=== PATIENT | male | born 2000 | race Caucasian/White ===

== ENCOUNTER 2019-12-02 23:47 | Emergency (ER) | payer OTHER ==
[~2019-12-02] VITALS: Ht 175.3 cm; Wt 59.0 kg
[2019-12-02 23:51] VITALS: BP 136/88
--- NOTE | 2019-12-03 00:02 | NUR ---
19 Y/O MALE C/O RASH, POSSIBLE ALLERGIC REACTION - STARTED THIS MORNING, WENT AWAY AND STARTED AGAIN AT x 2200 - OBSERVED HIVES ON ARMS, ABD, THIGHS. PT DENIES SOB. PMH:DENIES AX: PCN
--- NOTE | 2019-12-03 00:03 | NUR ---
Dr. Roberts examining patient.
[2019-12-03] MEDS ORDERED: diphenhydrAMINE 50 MG CAP PO ONE (00:10)
[2019-12-03 01:16] VITALS: BP 136/88
--- NOTE | 2019-12-03 01:16 | NUR ---
Patient discharged with v/s stable. Written and verbal after care instructions given and explained. Patient alert, oriented and verbalized understanding of instructions. Ambulatory with steady gait. All questions addressed prior to discharge. ID band removed. Patient advised to follow up with PMD. Rx of BENADRYL given. Patient educated on indication of medication including possible reaction and side effects. Opportunity to ask questions provided and answered.
== END 2019-12-03 01:16 | disposition home or self-care (01) ==
LOC: MED 23:47
DX: L50.0 Allergic urticaria (principal)
CPT/HCPCS: 99283; Q0163